=== PATIENT | male | born 1970 | race Caucasian/White ===

== ENCOUNTER 2019-06-23 11:58 | Outpatient (CLI) | payer OTHER ==
--- NOTE | 2019-06-24 13:49 | MRI Report ---
Reason: DISORDER OF SYNOVIUM AND TENDON, OCCUPATION EXPOSU Procedure Date: 06/23/2019 Accession Number: [id number] / [id number] Procedure: MRI - Elbow RT W/O CPT Code: Final Report FULL RESULT: EXAM: RIGHT ELBOW MRI WITHOUT CONTRAST EXAM DATE: 06/23/2019 02:13 PM. CLINICAL HISTORY: Biceps weakness for about a year. COMPARISON: None. TECHNIQUE: Multiplanar, multisequence T1-weighted and fluid-sensitive sequences of the elbow without contrast. Other: None. FINDINGS: Bones: No fractures or subluxations. No marrow edema. No bone lesions. Articular Cartilage: Unremarkable. Ligaments: The ulnar collateral, lateral ulnar collateral, radial collateral, and annular ligaments are intact. Tendons: There is thickening and increased T2 signal in the biceps tendon at the radial attachment consistent with tendinosis. The triceps tendon and common flexor origin appear intact. There is thickening and increased T2 signal in the common extensor origin consistent with tendinosis and low-grade partial-thickness tear of the deep fibers. Musculature: No edema or fatty atrophy. Other: The cubital tunnel and ulnar nerve are unremarkable. No effusion. The subcutaneous tissues are unremarkable. IMPRESSION: 1. Common extensor origin tendinosis and low-grade partial-thickness tear. 2. Tendinosis of the radial attachment of the biceps tendon. [facility]
--- NOTE | 2019-06-25 08:19 | MRI Report ---
Reason: OCCUPATIONAL EXPOSURE TO RADIATION Procedure Date: 06/23/2019 Accession Number: [id number] / [id number] Procedure: MRI - Brain W/O CPT Code: Final Report FULL RESULT: EXAM: MRI BRAIN WITHOUT CONTRAST EXAM DATE: 06/23/2019 01:34 PM. CLINICAL HISTORY: OCCUPATIONAL EXPOSURE TO RADIATION. COMPARISON: None. TECHNIQUE: Multiplanar, multisequence T1-weighted and fluid-sensitive MR sequences of the brain were performed. Sequences optimized for routine evaluation. Other: None. IV Contrast: None. FINDINGS: Brain Volume: Normal for age. Parenchyma/Dura: No mass, acute infarct or hemorrhage. No white matter lesions identified. Ventricles/Cisterns: No hydrocephalus. No abnormal extra-axial fluid collection or hemorrhage. Orbits: Symmetric and unremarkable. Sella Turcica: Unremarkable. IAC: Symmetric and unremarkable. Vasculature: Normal signal flow void is seen in the major arterial structures at the skull base. Sinuses: There is moderate right maxillary sinus mucosal thickening. There is mild left maxillary sinus mucosal thickening. No sinus fluid levels. Bones: No focal pathologic appearing marrow signal changes. Other: None. IMPRESSION: 1. Chronic appearing paranasal sinus disease. 2. Otherwise normal brain MRI. [facility]
== END 2019-06-23 11:59 | disposition home or self-care (01) ==
LOC: DI 11:58
PROVIDERS: ATTEND Student in an Organized Health Care Education/Training Program
DX: S56.511A Strain of other extensor muscle, fascia and tendon at forearm level, right arm, initial encounter (principal); Z57.1 Occupational exposure to radiation; M67.921 Unspecified disorder of synovium and tendon, right upper arm; J32.0 Chronic maxillary sinusitis
CPT/HCPCS: 70551